=== PATIENT | female | born 1945 | race African-American/Black ===

== ENCOUNTER 2016-09-23 14:58 | Emergency (ER) | payer MEDICARE, BC ==
[2016-09-23 14:32] LABS: BASOPHILS 0.2 %; BASOPHILS ABSOLUTE 0.02 10/3/uL (0.0-0.16); EOSINOPHILS 1.5 %; EOSINOPHILS ABSOLUTE 0.19 10/3/uL (0.0-0.53); HEMATOCRIT 41.1 % (36.0-48.0); IMMATURE GRANULOCYTES 0.3 %; IMMATURE GRANULOCYTES ABSOLUTE 0.04 10/3/uL (0.0-0.11); LYMPHOCYTES 12.8 %; LYMPHOCYTES ABSOLUTE 1.63 10/3/uL (0.67-4.30); MEAN CORPUS HGB CONC 31.6 g/dL (32.0-36.0); MEAN CORPUSCULAR HEMOGLOB 28.7 pg (26.0-34.0); MEAN CORPUSCULAR VOLUME 90.7 fL (80-100); MEAN PLATELET VOLUME 10.6 fL (9.2-13.0); MONOCYTES 6.1 %; MONOCYTES ABSOLUTE 0.77 10/3/uL (0.21-1.20); NEUTROPHILS 79.1 %; NEUTROPHILS ABSOLUTE 10.06 10/3/uL (2.02-8.40); PLATELET COUNT 229 10/3/uL (150-400); RBC DISTRIBUTION WIDTH 17.1 % (12.0-16.0); RED CELL COUNT 4.53 10/6/uL (4.0-5.6)
[2016-09-23 14:35] LABS: ER CBC TAT 0 Hrs 09 Mins; MANUAL DIFF NO %; WHITE BLOOD CELLS 12.7 10/3/uL (4.5-10.5)
[2016-09-23 14:41] LABS: INTERNATIONAL NORMAL RATI 1.1 UNITS (-); PARTIAL THROMBO TIME 27.3 SEC (22.5-37.2); PROTIME (NOT ORD) 13.9 SEC (12.0-14.5)
[2016-09-23 14:49] LABS: BUN (BLOOD UREA NITROGEN) 20 MG/DL (6-23); CALCIUM, SERUM 9.1 MG/DL (8.5-10.4); CHEST PAIN PROFILE TAT 0 Hrs 23 Mins; CHLORIDE, SERUM 103 MMOL/L (96-112); CO2 (CARBON DIOXIDE) 29 MMOL/L (24-34); CREATININE 1.11 MG/DL (0.55-1.02); GFR AFRICAN AMERICAN 57 ML/MIN (>=60); GFR NON AFRICAN AMERICAN 49 ML/MIN (>=60); GLUCOSE, SERUM 98 MG/DL (60-99); POTASSIUM, SERUM 4.2 MMOL/L (3.5-5.3); SODIUM, SERUM 142 MMOL/L (135-148); TROPONIN I 0.02 NG/ML (<0.05)
[~2016-09-23 14:58] MED LIST: ASA5GR PO; ASAB PO; ASABAYER PO; ASAEC PO; BENTYL20 PO; BUFFERIN PO; CALGLUCTAB PO; CELEBREX2 PO; CENTRUM TAB1 TAB PO; COREG25 PO; COREG3 PO; COREG6 PO; COREGCR10 PO; COZ25 PO; DICYCLOMINE; DICYCLOMINE PO; ENBREL50 MG/M1 SC; ESTRACE1 MG PO; ESTRADIOL1 MG PO; FISH-EPA1000 MG PO; FLEXERIL5 MG PO; FOLIC ACID PO; FOLIC PO; FOSAMAX70 MG PO; GARLIC PO; L40 PO; LIPITOR20 PO; LORTAB 5 PO; METHOTREXATE; METHOTREXATE PO; MEVACOR40 MG PO; MOBIC15 MG PO; MTX2.5 PO; MULTIPLE VIT PO; MULTIVITAMI1 PO; MVI; NITROQUICK0.4 MG SL; NITROSTAT0.4 MG SL; NORCO1 TA2 PO; NORV25 PO; OMEGA 3 PO; OMEGA 3550 MG PO; ORENCIA250 MG IV; OS500+D PO; P10 PO; P5 PO; PLAVIX PO; PR12.5 PO; PRILO PO; PRIN2.5 PO; SPIRO25 PO; TREXALL15 MG PO; VITAMIN D1000 UNI1 PO; ZOCOR40 PO; [UNRECOGNIZED DRUG - REMARK]; [UNRECOGNIZED DRUG - REMARK]
[2016-09-23 15:54] LABS: INFLUENZA A SCREEN NEGATIVE (NEGATIVE); INFLUENZA B SCREEN NEGATIVE (NEGATIVE)
[2016-09-23] MEDS ORDERED: P1 PO (16:12)
[2016-09-23] MEDS ORDERED: FOLIC PO (16:12)
[2016-09-23] MEDS ORDERED: PRILO PO (16:12)
[2016-09-23] MEDS ORDERED: MOBIC15 MG PO (16:13)
[2016-09-23] MEDS ORDERED: TREXALL15 MG PO (16:13)
[2016-09-23] MEDS ORDERED: ORENCIA250 MG IV (16:14)
[2016-09-23] MEDS ORDERED: NITROSTAT0.4 MG SL (16:14)
[2016-09-23] MEDS ORDERED: COREG3 PO (16:14)
[2016-09-23] MEDS ORDERED: SPIRO25 PO (16:14)
[2016-09-23] MEDS ORDERED: PLAVIX PO (16:15)
[2016-09-23] MEDS ORDERED: ASAB PO (16:15)
[2016-09-23] MEDS ORDERED: L40 PO (16:15)
[2016-09-23] MEDS ORDERED: COZ25 PO (16:15)
[2016-09-23] MEDS ORDERED: NORV25 PO (16:16)
[2016-09-23] MEDS ORDERED: BENTYL20 PO (16:17)
[2016-09-23] MEDS ORDERED: OS500+D PO (16:18)
[2016-09-23] MEDS ORDERED: OMEGA-3 PO (16:18)
[2016-09-23] MEDS ORDERED: MULTIVIT/MIN PO (16:18)
[2016-09-23] MEDS ORDERED: GARLIC SUPPLEMENT PO (16:19)
[2016-09-23] MEDS ORDERED: DSS PO (16:19)
[2016-09-23] MEDS ORDERED: T PO (16:19)
[2016-09-23] MEDS ORDERED: TYLENOL COL5 PO (16:22)
== END 2016-09-23 17:30 | disposition home or self-care (01) ==
LOC: ER 14:58
PROVIDERS: Emergency Medicine
DX: J44.9 Chronic obstructive pulmonary disease, unspecified (principal); I25.2 Old myocardial infarction; I10 Essential (primary) hypertension; Z98.61 Coronary angioplasty status; Z95.1 Presence of aortocoronary bypass graft; Z88.0 Allergy status to penicillin; Z88.8 Allergy status to other drugs, medicaments and biological substances; Z79.52 Long term (current) use of systemic steroids; Z79.899 Other long term (current) drug therapy; Z79.82 Long term (current) use of aspirin
CPT/HCPCS: 71010; 80048; 81001; 83605; 83735; 84484; 85025; 85610; 85730; 87804; 93005; 94640; 99285